=== PATIENT | female | born 1995 ===

== ENCOUNTER 2018-09-21 16:00 | Emergency (ER) | payer SELFPAY ==
--- NOTE | 2018-09-21 16:42 | ER Document Report ---
ED Medical Screen (RME) <DUSTY CAREY - Last Filed: 09/21/18 18:37> <BRYANNA SIMONS - Last Filed: 09/21/18 20:33> - General Chief Complaint: Psych Problem Stated Complaint: PSYCH EVAL Time Seen by Provider: 09/21/18 16:39 Notes: Patient is here because she is suffering from bipolar disorder with mood swings. She says that she is gone from one extreme to the other during this past week. She says Minf[place] was "so low" and then , she was hyper and got 100s of things done and felt great, got no sleep. Then the next day, she slept the entire day. Patient has been on Zyprexa in the past which was helpful except did not help the anxiety that she experiences which causes her to have panic attacks. Patient is going to a very stressful time. Her grandmother in January and then her sister committed suicide in April. Patient tears up when she describes these deaths.. However, patient denies having any suicidal thoughts at all. Patient has been diagnosed with bipolar disorder in the past, but is currently not on any medications for this disorder. (BRYANNA SIMONS) - Related Data Allergies/Adverse Reactions: ciprofloxacin [From Cipro] Allergy (Verified 09/21/18 16:03) nitrofurantoin [From Macrobid] Allergy (Verified 09/21/18 16:03) Past Medical History - Social History Cigarette use (# per day): No Family history: Reviewed & Not Pertinent Psychiatric Medical History: Reports: Hx Anxiety, Hx Bipolar Disorder, Other - Panic attacks <BRYANNA SIMONS - Last Filed: 09/21/18 20:33> Review of Systems <BRYANNA SIMONS - Last Filed: 09/21/18 20:33> - Review of Systems Notes: REVIEW OF SYSTEMS: CONSTITUTIONAL : Denies fever. EENT: Denies eye, ear, nose or mouth or throat pain or other symptoms. CARDIOVASCULAR: Denies chest pain. RESPIRATORY: Denies cough, chest congestion, or shortness of breath. GASTROINTESTINAL: Denies abdominal pain or nausea, vomiting, or diarrhea. GENITOURINARY: Denies difficulty or painful urinating, urinary frequency, blood in urine. MUSCULOSKELETAL: Denies back or neck pain. Denies joint pain or swelling. SKIN: Denies rash or skin lesions. NEUROLOGICAL: Denies LOC or altered mental status. Denies headache. Denies sensory loss or motor deficits. ALL OTHER SYSTEMS REVIEWED AND NEGATIVE. (BRYANNA SIMONS) Physical Exam - Vital signs Interpretation: Tachycardic <BRYANNA SIMONS - Last Filed: 09/21/18 20:33> - Vital signs Vitals: Temp Pulse Resp BP Pulse Ox 99.2 F 129 H 16 107/75 100 09/21/18 16:18 09/21/18 16:18 09/21/18 16:18 09/21/18 16:18 09/21/18 16:18 Notes: PHYSICAL EXAMINATION: GENERAL: Anxious and tearful at times. HEAD: Atraumatic, normocephalic. EYES: Pupils equal round and reactive to light, extraocular movements intact. ENT: oropharynx clear without exudates. Moist mucous membranes. NECK: Normal range of motion, supple. LUNGS: Breath sounds clear and equal bilaterally. HEART: Regular rate and rhythm without murmurs. ABDOMEN: Soft, nontender. No guarding or rebound. No masses. BACK: No tenderness throughout entire back. EXTREMITIES: Normal range of motion without pain. NEUROLOGICAL: Normal speech, normal gait. Normal sensory, motor, and reflex exams. Awake, alert, and oriented x3. Cranial nerves normal. PSYCH: Anxious. Sad and tearful at times. SKIN: Warm, dry, no rashes. (BRYANNA SIMONS) Course - Laboratory Result Diagrams: 09/21/18 17:10 09/21/18 17:10 <DUSTY CAREY - Last Filed: 09/21/18 18:37> - Laboratory Result Diagrams: 09/21/18 17:10 09/21/18 17:10 <BRYANNA SIMONS - Last Filed: 09/21/18 20:33> - Re-evaluation Re-evalutation: 09/21/18 20:30 Patient's urine looks like a possible UTI. I did order a culture of her urine but did not start her on antibiotic. Patient was evaluated by mental health who felt that she could be discharged with medications. Resources for follow-up were provided. (BRYANNA SIMONS) - Vital Signs Vital signs: Temp Pulse Resp BP Pulse Ox 98.6 F 122 H 16 100/81 98 09/21/18 18:49 09/21/18 18:49 09/21/18 18:49 09/21/18 18:49 09/21/18 18:49 - Laboratory Laboratory results interpreted by me: 09/21/18 09/21/18 17:10 17:19 AST 39 H Urine Protein 30 H Urine Nitrite POSITIVE H Ur Leukocyte Esterase SMALL H Salicylates < 1.0 L Acetaminophen < 10 L Doctor's Discharge <DUSTY CAREY - Last Filed: 09/21/18 18:37> <BRYANNA SIMONS - Last Filed: 09/21/18 20:33> - Discharge Clinical Impression: Bipolar disorder, unspecified Qualifiers: Active/Remission status: remission status unspecified Qualified Code(s): F31.9 - Bipolar disorder, unspecified Condition: Stable Disposition: HOME, SELF-CARE Additional Instructions: You have been evaluated by both medical and behavioral health teams have been deemed appropriate for discharge. You have been provided prescriptions for Depakote 250 mg twice daily and Zyprexa 5 mg twice daily; please take as directed. Please follow-up with an outpatient mental health provider of your choice, you have been provided a local resource list of area providers including mobile crisis contact information. Bipolar Disorder Bipolar disorder is also called manic-depressive disorder. Depression alternates with brain hyperactivity called regis. Each phase lasts from several days to a few weeks. We don't know exactly what causes bipolar disorder, but it's treatable. During the "manic phase," you may feel elated and energetic. You may have racing thoughts, rapid speech, increased activity, and grandiose ideas. During this time, you may not realize how poor your judgement is. Inappropriate spending, drug abuse, excessive alcohol use, marriage problems, and irresponsible sexual behavior are common during the manic phase. During the "depressive phase," you might feel depressed, guilty, worthless, fatigued, and unable to concentrate. You might have thoughts of suicide. Good treatments are available for bipolar disorder. [place] is a classic drug for bipolar disorder, and is still often useful. If the manic phase is very mild, an antidepressant alone can be prescribed. If the manic phase is very severe, an antipsychotic medicine (such as Haldol) may be needed. The treatment must be matched to your symptoms, so it's important to work closely with your psychiatric care provider. Contact your physician, the hospital emergency center, crisis line, or your counsellor if you are losing control or having self-destructive thoughts. Prescriptions: Divalproex Sodium [Depakote Er 250 Mg Tablet] 250 mg PO BID #30 tab.sr.24h Olanzapine [Zyprexa 5 mg Tablet] 5 mg PO BID #30 tablet Referrals: S Crisis Team [Outside] - Follow up as needed
[2018-09-21] MEDS ORDERED: OLANZAPINE 5 MG TABLET PO ONE (16:44)
[2018-09-21 17:35] LABS: ABSOLUTE EOSINOPHILS # (AUTO) 0.1 10^3/uL (0.0-0.6); ABSOLUTE LYMPHOCYTES (AUTO) 1.8 10^3/uL (0.5-4.7); ABSOLUTE MONOCYTES (AUTO) 0.3 10^3/uL (0.1-1.4); ABSOLUTE NEUT (AUTO) 2.9 10^3/uL (1.7-8.2); BASOPHILS % (AUTO) 0.4 % (0-2); EOSINOPHILS % (AUTO) 1.5 % (0-6); HEMATOCRIT 38.6 % (36.0-47.0); HEMOGLOBIN 13.7 g/dL (12.0-15.5); LYMPHOCYTES % (AUTO) 35.4 % (13-45); MEAN CORPUSCULAR HEMOGLOBIN 30.8 pg (27.0-33.4); MEAN CORPUSCULAR HGB CONC 35.4 g/dL (32.0-36.0); MEAN CORPUSCULAR VOLUME 87 fl (80-97); MONOCYTES % (AUTO) 5.2 % (3-13); PLATELET COUNT 315 10^3/uL (150-450); RED BLOOD COUNT 4.45 10^6/uL (3.72-5.28); RED CELL DISTRIBUTION WIDTH 12.5 % (11.5-14.0); SEGMENTED NEUTROPHILS % (AUTO) 57.5 % (42-78); TOTAL CELLS COUNTED % (AUTO) 100 %; WHITE BLOOD COUNT 5.1 10^3/uL (4.0-10.5)
[2018-09-21 17:37] LABS: APPEARANCE,URINE CLOUDY; BILIRUBIN,URINE NEGATIVE (NEGATIVE); GLUCOSE, URINE NEGATIVE (NEGATIVE); KETONES,URINE NEGATIVE (NEGATIVE); LEUKOCYTE ESTERASE,URINE SMALL (NEGATIVE); NITRITE,URINE POSITIVE (NEGATIVE); PROTEIN,URINE 30 mg/dL (NEGATIVE); URINE SPECIFIC GRAVITY 1.025; UROBILINOGEN,URINE NEGATIVE mg/dL (<2.0)
[2018-09-21 17:38] LABS: COLOR,URINE YELLOW
[2018-09-21 17:47] LABS: URINE BARBITURATES SCREEN NEGATIVE; URINE BENZODIAZEPINES SCREEN UNCONFIRMED POSITIVE; URINE COCAINE SCREEN NEGATIVE; URINE MARIJUANA (THC) SCREEN UNCONFIRMED POSITIVE; URINE METHADONE SCREEN NEGATIVE; URINE PHENCYCLIDINE SCREEN NEGATIVE
[2018-09-21 17:47] LABS: ALANINE AMINOTRANSFERASE 43 U/L (9-52); ALBUMIN 4.5 g/dL (3.5-5.0); ALKALINE PHOSPHATASE 65 U/L (38-126); ANION GAP 8 (5-19); ASPARTATE AMINO TRANSFERASE 39 U/L (14-36); BILIRUBIN,DIRECT 0.2 mg/dL (0.0-0.4); BILIRUBIN,TOTAL 0.4 mg/dL (0.2-1.3); BLOOD UREA NITROGEN 16 mg/dL (7-20); CALCIUM 9.9 mg/dL (8.4-10.2); CARBON DIOXIDE 27 mmol/L (22-30); CHLORIDE 105 mmol/L (98-107); GLUCOSE 84 mg/dL (75-110); POTASSIUM 4.8 mmol/L (3.6-5.0); SODIUM 140.2 mmol/L (137-145); TOTAL PROTEIN 7.8 g/dL (6.3-8.2)
[2018-09-21 17:49] LABS: ACETAMINOPHEN < 10 ug/mL (10-30); ALCOHOL < 10 mg/dL (NONE DETECTED); SALICYLATE < 1.0 mg/dL (2.0-20.0)
[2018-09-21 18:49] VITALS: BP 100/81
--- NOTE | 2018-09-22 12:52 | EKG REPORT ---
SEVERITY:- NORMAL ECG - SINUS RHYTHM : Confirmed by: Gina Mccurdy 22-Sep-2018 12:52:40
== END 2018-09-21 18:51 | disposition home or self-care (01) ==
LOC: ER 16:00
DX: F31.9 Bipolar disorder, unspecified (principal); F41.9 Anxiety disorder, unspecified; Z88.3 Allergy status to other anti-infective agents
CPT/HCPCS: 36415; 80053; 80307; 81001; 85025; 87086; 87088; 87186; 93005; 93010; 99284